=== PATIENT | male | born 1960 | race Caucasian/White ===

== ENCOUNTER 2018-06-19 08:33 | Day surgery (SDC) | payer MEDICARE ==
[~2018-06-19 08:33] MED LIST: Lactated Ringers 1,000 ML IV SCH
[2018-06-19] MEDS ORDERED: Ketamine HCl 50 MG/ML IV ONE (08:34)
[2018-06-19] MEDS ORDERED: DIPRIVAN 200 MG/20 ML IV ONE (08:34)
--- NOTE | 2018-06-19 08:48 | HP ---
DATE OF SURGERY: 06/19/2018 HISTORY OF PRESENT ILLNESS: The patient is a 58 year-old with history of polyps, history of episodes of rectal bleeding two to three months ago. No change in bowel movements. Some emesis daily mostly phlegm. History of vomiting. History of polyp. History of rectal bleeding. He is in need of follow up colonoscopy and upper endoscopy. PAST MEDICAL HISTORY: Chronic obstructive pulmonary disease, polycythemia, hypertension. PAST SURGICAL HISTORY: Appendectomy, tonsillectomy, uvulectomy in the past. MEDICATIONS: Aspirin, Centrum Silver, amlodipine, carvedilol, omeprazole, clonazepam, trazodone, ropinirole. ALLERGIES: NKDA. BEE STING. FAMILY HISTORY: Cancer, hypertension, heart disease. SOCIAL HISTORY: Two packs per day smoker. He denies alcohol. REVIEW OF SYSTEMS: Twelve systems reviewed. He has history of pericardial sac inflammation in the past. No chest pain or palpitations other systems negative or noncontributory as above and per preadmission questionnaire. PHYSICAL EXAMINATION: GENERAL: No acute distress. HEENT: Sclerae nonicteric. NECK: No JVD. CHEST: Equal excursion, nonlabored breathing. CVS: Regular rate and rhythm. ABDOMEN: Soft. No peritoneal signs. EXTREMITIES: No significant edema. NEURO: Alert, oriented, moving extremities symmetrically. No gross motor deficits noted. IMPRESSION: History of vomiting. History of polyps. History of episode of rectal bleeding. He is in need of upper and lower endoscopy for further evaluation. Risks and benefits explained in detail including but not limited to bleeding or infection, small risk of bowel injury or perforation possibly requiring open procedure, small risk of missed or nondiagnosis or incomplete exam possibly requiring barium enema, other studies or procedures, general risk of anesthesia or sedation. He understands and agrees to the planned procedure and will proceed with colonoscopy and EGD as an outpatient.
[2018-06-19] MEDS ORDERED: Lactated Ringers 1,000 ML IV ONE ×2 (08:49→11:00)
[2018-06-19 11:44] VITALS: O2SAT 95
[2018-06-19 11:47] VITALS: BP 146/98; PULSE 76
--- NOTE | 2018-06-19 13:54 | OP ---
SURGERY DATE/TIME: 06/19/2018 0946 PREOPERATIVE DIAGNOSES: 1) History of vomiting, in need of upper endoscopy. 2) History of polyps. 3) History of rectal bleeding, need for follow up colonoscopy. POSTOPERATIVE DIAGNOSES: 1) Minimal to mild gastritis. 2) Poor colon prep limiting exam. 3) Colon polyps. 4) Diverticulosis. 5) Small internal and external hemorrhoids. PROCEDURES: 1) EGD with cold biopsy of the small bowel to evaluate for celiac sprue. 2) Cold biopsy of the antrum to evaluate for Helicobacter pylori. 3) Cold biopsy distal esophagus to the gastroesophageal junction to evaluate for borderline or short segment early gastroesophagitis versus mild variation of gastroesophageal junction. 4) Colonoscopy to cecum. 5) Hot snare polypectomy of proximal ascending colon polyp near the ileocecal valve. 6) Hot biopsy second small ascending colon polyp. 7) Cold biopsy raised lesion cecum. 8) Hot biopsy patchy inflammation area of the cecum. 9) Hot biopsy raised lesion transverse colon, sigmoid colon and rectum. SURGEON: Dr. Aleln Ashley. ANESTHESIA: MAC. ESTIMATED BLOOD LOSS: Minimal. INDICATIONS: As noted above. Risks and benefits explained in detail and not limited to and consent obtained. DESCRIPTION OF PROCEDURE AND FINDINGS: The patient is taken to the endoscopy room. MAC anesthesia introduced. After official time out and no disagreement with planned procedure, a bite block positioned. Video gastroscope easily passed down the esophagus through the patent pylorus to the junction of the second and third portion of the duodenum. Given his vomiting unclear etiology cold biopsy of small bowel to evaluate for celiac sprue. Good hemostasis noted. There were no signs of any obvious ulcers or other mucosal lesions in the proximal small bowel. The scope pulled back into the stomach. He had some gastric erythema consistent with minimal to mild gastritis. Cold biopsy taken to evaluate for Helicobacter pylori. There were no signs of any ulcer or masses. On retroflex the gastroesophageal junction snug against the scope. No signs of any hiatal hernia. The scope pulled back. The gastroesophageal junction about 40 cm. He had some tiny millimeter sized lesions of mucosa whether this is early Nettles's or just normal variation. Cold biopsy taken at distal esophagus gastroesophageal junction. The remainder of the esophagus grossly unremarkable. No evidence of mucosal lesions. Attention is then turned to colonoscopy. Digital rectal exam did not reveal any rectal masses. He did have some small internal and external hemorrhoids. Video colonoscope inserted and passed up through the poorly prepped colon. A large amount of semi-solid liquidy stool throughout the colon limited the exam for small lesions. With external pressure the scope was able to be passed around to ascending colon and cecum with one patchy area of inflammation that was biopsied with hot biopsy forceps with brief bursts of cautery in the cecum. Otherwise small raised lesion or early polyp in the ascending colon removed with hot biopsy forceps. There was another polyp that was about 6 to 7 mm a little elongated removed with hot snare polypectomy with brief bursts of cautery. Good hemostasis noted. Otherwise scope pulled back. He did have some mild diverticulosis. He had some small raised lesions in the transverse colon x2 removed with hot biopsy forceps. The scope pulled back to the sigmoid colon again with some mild diverticulosis. He had some raised lesions versus early polyps or hyperplastic lesions in the sigmoid colon removed with hot biopsy forceps as well as five or six small ones in the rectum removed with hot biopsy forceps with brief bursts of cautery. Good hemostasis noted. He had some internal and external hemorrhoids. There were no signs of any large polyps, masses or obstructing lesions. The scope is withdrawn. The patient tolerated the procedure well. There was no family available at the moment to discuss the findings with.
== END 2018-06-19 11:30 | disposition home or self-care (01) ==
LOC: SDC 08:33
PROVIDERS: ATTEND Surgery
DX: K29.70 Gastritis, unspecified, without bleeding (principal); K63.5 Polyp of colon; K57.90 Diverticulosis of intestine, part unspecified, without perforation or abscess without bleeding; K62.5 Hemorrhage of anus and rectum; Z86.010 Personal history of colon polyps; K64.4 Residual hemorrhoidal skin tags; K64.8 Other hemorrhoids; Z09 Encounter for follow-up examination after completed treatment for conditions other than malignant neoplasm
CPT/HCPCS: 88305; 94250; J2704